=== PATIENT | male | born 1985 | race Caucasian/White ===

== ENCOUNTER → 2024-09-19 | Day surgery (SDC) | payer OTHER ==
[~2024-09-19] MED LIST: Gadobenate Dimeglumine 2 ML, Sodium Chloride 0.9% 250 ML 10 ML, Iopamidol 8 ML, Lidocai... FS ONE
== END ==
LOC: CSHRAD 12:29
PROVIDERS: ATTEND Family Medicine
PROC: BP38YZZ Magnetic Resonance Imaging (MRI) of Right Shoulder using Other Contrast (ICD-10-PCS; principal; 2024-09-19)
DX: M24.411 Recurrent dislocation, right shoulder (principal)
CPT/HCPCS: 23350; 77002; A9577; J0171; J7050; Q9967